=== PATIENT | male | born 1945 | race Caucasian/White ===

== ENCOUNTER → 2020-11-28 | Day surgery (SDC) | payer OTHER ==
[~2020-11-28] VITALS: Ht 157.5 cm; Wt 72.6 kg
[~2020-11-28] MED LIST: 3IN1 COMMODE; AMOX TR-K CLV1 EAC4 PO; AMOXICILLIN875 MG PO; BENICAR *OUT OF20 MG PO; CARDURA2 MG PO; DEXILANT60 MG PO; ESOMEPRAZOLE MA20 MG PO; FLOMAX0.4 MG PO; FLONASE ALLER15.8 ML; HYDROCODON-ACE1 EAC2 PO; LIPITOR40 MG PO; LISINOPRIL5 MG PO; MEDROL 4MG DOSEP4 MG PO; NAMENDA 10MG TA10 MG PO; NEURONTIN300 MG PO; NORCO 5-325 TA1 EACH PO; PREDNISONE 20MG20 MG PO; PROAIR HFA8.5 GM INH; ROBITUSSIN W/COD5 ML PO; SINGULAIR10 MG PO; ZESTRIL5 MG PO; ZOFRAN4 M1 PO
[2020-11-28 11:22] LABS: HCT 39.7 % (42.0-52.0); HGB 13.4 g/dl (13.2-18.0); MCH 29.8 pg (25.0-31.0); MCHC 33.8 g/dL (32.0-36.0); MCV 88.4 fL (78.0-100.0); MPV 10.5 fL (6.0-9.5); RBC 4.49 M/uL (4.70-6.00); RDW 14.8 % (11.5-14.0); WBC 8.1 K/uL (4.0-10.5)
[2020-11-28 13:42] LABS: ALBUMIN 3.4 g/dL (3.4-5.0); BILIRUBIN - TOTAL 0.5 mg/dL (0.2-1.0); CREATININE 0.92 mg/dL (0.67-1.17); GLOBULIN (CALCULATION) 4.2 g/dL; POTASSIUM 4.2 mmol/L (3.5-5.1); TOTAL PROTEIN 7.6 g/dL (6.4-8.2)
== END | disposition home or self-care (01) ==
LOC: FAS 10:30
PROVIDERS: Surgery
DX: K31.7 Polyp of stomach and duodenum (principal); K44.9 Diaphragmatic hernia without obstruction or gangrene; K21.9 Gastro-esophageal reflux disease without esophagitis; G30.9 Alzheimer's disease, unspecified; F02.80 Dementia in other diseases classified elsewhere, unspecified severity, without behavioral disturbance, psychotic disturbance, mood disturbance, and anxiety; F32.9 Major depressive disorder, single episode, unspecified; E11.9 Type 2 diabetes mellitus without complications; F41.9 Anxiety disorder, unspecified; N40.1 Benign prostatic hyperplasia with lower urinary tract symptoms; R35.0 Frequency of micturition; I10 Essential (primary) hypertension; E78.00 Pure hypercholesterolemia, unspecified; Z88.8 Allergy status to other drugs, medicaments and biological substances; Z79.899 Other long term (current) drug therapy
CPT/HCPCS: 36415; 80053; 82150; 83690; 88305; J2704; J7120

== ENCOUNTER 2021-01-15 11:20 | Emergency (ER) | payer OTHER ==
[~2021-01-15 11:20] MED LIST changes: -AMOXICILLIN875 MG PO; -MEDROL 4MG DOSEP4 MG PO; -ZOFRAN4 M1 PO
[2021-01-15 12:26] LABS: BASOPHIL 0.8 % (0-2); EOSINOPHIL 5.1 % (0-7); HCT 40.1 % (42.0-52.0); HGB 13.3 g/dl (13.2-18.0); LYMPHOCYTE 46.1 % (15-48); MCHC 33.2 g/dL (32.0-36.0); MCV 90.3 fL (78.0-100.0); MONOCYTE 7.8 % (0-12); MPV 10.9 fL (6.0-9.5); NRBC 0; PLT 258 K/uL (150-400); RBC 4.44 M/uL (4.70-6.00); RDW 14.9 % (11.5-14.0)
[2021-01-15 12:32] LABS: INR 1.05 (0.9-1.2); PROTHROMBIN TIME 13.1 SECONDS (11.8-13.4)
[2021-01-15 12:33] LABS: PTT 34.5 SECONDS (24.4-34.7)
[2021-01-15 12:49] LABS: PRO-BNP 35 pg/mL (<450)
[2021-01-15 12:57] LABS: ALBUMIN 3.6 g/dL (3.4-5.0); ALKALINE PHOSHATASE 193 U/L (46-116); ALT 38 U/L (16-63); AST 30 U/L (15-37); BILIRUBIN - TOTAL 0.3 mg/dL (0.2-1.0); BUN 15 mg/dL (7-18); BUN/CREAT RATIO (CALC) 12.5 RATIO; CHLORIDE 103 mmol/L (98-107); CO2 (BICARBONATE) 28 mmol/L (21-32); CPK 137 U/L (39-308); GLOBULIN (CALCULATION) 3.9 g/dL; GLUCOSE 125 mg/dL (74-106); POTASSIUM 4.5 mmol/L (3.5-5.1); TOTAL PROTEIN 7.5 g/dL (6.4-8.2)
[2021-01-15 13:01] LABS: C-REACTIVE PROTEIN < 0.20 mg/dL (<=0.90)
[2021-01-15] MEDS ORDERED: ZOFRAN4 M1 PO (14:09)
[2021-01-15] MEDS ORDERED: MEDROL 4MG DOSEP4 MG PO (14:09)
[2021-01-15] MEDS ORDERED: AMOXICILLIN875 MG PO (14:09)
== END 2021-01-15 14:39 | disposition home or self-care (01) ==
LOC: FER 11:20
PROVIDERS: Emergency Medicine
DX: R07.89 Other chest pain (principal); R06.02 Shortness of breath; J32.9 Chronic sinusitis, unspecified; H53.8 Other visual disturbances; I44.4 Left anterior fascicular block; R00.2 Palpitations; I10 Essential (primary) hypertension; J45.909 Unspecified asthma, uncomplicated; Z88.8 Allergy status to other drugs, medicaments and biological substances; Z57.5 Occupational exposure to toxic agents in other industries
CPT/HCPCS: 36415; 70450; 71250; 80053; 82550; 83605; 83735; 83880; 84145; 84443; 84484; 85025; 85610; 85730; 86140; 93005